=== PATIENT | female | born 1980 | race Caucasian/White ===

== ENCOUNTER 2018-02-04 12:15 | Emergency (ER) | payer BC ==
[2018-02-04] MEDS ORDERED: 0.9 % SODIUM CHLORIDE 1000ML 1,000 ML IV PRN (12:40)
[2018-02-04] MEDS ORDERED: KETOROLAC 30 MG/ML VIAL IVP ONE (12:40)
[2018-02-04] MEDS ORDERED: ONDANSETRON HCL IV 4 MG/2 ML VIAL IV ONE (12:40)
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
[2018-02-04 12:52] LABS: BASO % 0.2 % (0-6); EOS % 2.3 % (0-6); GRAN % 63.8 % (47-80); HEMATOCRIT 37.3 % (35.0-47.0); HEMOGLOBIN 10.9 gm/dl (11.6-16.0); LYMPH % 25.1 % (16-45); MEAN CELL VOLUME 72.6 fl (81-97); MEAN CORPUSCULAR HEMOGLOBIN 21.2 pg (27-33); MEAN CORPUSCULAR HGB CONC 29.2 g/dl (32-36); MEAN PLATELET VOLUME 9.5 fl (7.4-10.4); MONO % 8.6 % (0-9); PLATELET COUNT 419 K/uL (130-400); RED BLOOD COUNT 5.14 M/uL (3.80-5.40); RED CELL DISTRIBUTION WIDTH 16.5 % (11.5-14.5); WHITE BLOOD COUNT W/O DIFF 11.2 K/uL (4.2-12.2)
[2018-02-04 12:53] LABS: URINE APPEARANCE CLEAR; URINE BILIRUBIN NEGATIVE (NEGATIVE); URINE BLOOD NEGATIVE (NEGATIVE); URINE COLOR YELLOW; URINE GLUCOSE (UA) NEGATIVE (NEGATIVE); URINE KETONE NEGATIVE (NEGATIVE); URINE LEUKOCYTE ESTERASE NEGATIVE (NEGATIVE); URINE NITRITE NEGATIVE (NEGATIVE); URINE PROTEIN NEGATIVE (NEGATIVE); URINE UROBILINOGEN 0.2 E.U./dL (0.20 - 1.00)
[2018-02-04 12:55] LABS: HCG,QUALITATIVE URINE NEGATIVE (NEGATIVE)
[2018-02-04 13:18] LABS: BLOOD UREA NITROGEN 10 mg/dL (6-20)
[2018-02-04 13:19] LABS: CREATININE 0.5 mg/dL (0.5-0.9); EST GLOMERULAR FILTRATION RATE > 60 mL/min; TOTAL PROTEIN 6.7 g/dL (6.6-8.7)
[2018-02-04 13:21] LABS: GLUCOSE,RANDOM 116 mg/dL (74-109)
[2018-02-04 13:24] LABS: ALBUMIN 4.3 g/dL (4.0-5.0); ALKALINE PHOSPHATASE 55 U/L (35-104); ALT/SGPT 17 U/L (<33); AST/SGOT 14 U/L (10.0-35.0); BILIRUBIN,DIRECT < 0.2 mg/dL (0-0.3); LIPASE 167 U/L (13-60)
[2018-02-04] MEDS ORDERED: HYDROMORPHONE HCL 2 MG/ML VIAL IVP ONE (15:04)
[2018-02-04] MEDS ORDERED: ONDANSETRON HCL IV 4 MG/2 ML VIAL IVP ONE (15:05)
[2018-02-04] MEDS ORDERED: HYDROCODONE/APAP 7.5/325MG TABLET PO ONE (17:29)
--- NOTE | 2018-02-06 07:55 | CT SCAN REPORT ---
EXAM: EMERGENCY CT OF THE ABDOMEN AND PELVIS WITHOUT CONTRAST HISTORY: RIGHT FLANK PAIN AND RIGHT UPPER QUADRANT PAIN. TECHNIQUE: Axial CT scan of the abdomen and pelvis was performed without oral or IV contrast. Comparison: None. FINDINGS: There appear to be multiple calcifications in the gallbladder consistent with cholelithiasis. No definite adjacent inflammatory type changes seen to suggest acute cholecystitis. No intrarenal calculi identified on either side. No hydronephrosis or hydroureter is seen. As such the ureters are somewhat difficult to follow in their nondilated state particularly within the pelvis, but no definite ureteral calculus seen on either side and no bladder calculus evident. The uterus is tilted towards the right. Small periumbilical anterior abdominal wall hernia containing adipose tissue, but no bowel. The appendix appears of normal caliber with no appendicitis evident. Sight hyperdensity in the appendix appears relatively diffuse and is probably just concentrated enteric content rather than actual appendicolith's. Evaluation of the bowel and viscera is quite limited without oral or IV contrast. Given this limitation, no definite hepatic, splenic, adrenal, pancreatic, or renal mass identified. There are probably a couple small accessory spleens adjacent to the superior aspect of the spleen both medially and laterally. Mild ground glass opacity in both lung bases may represent some atelectasis. No free intraperitoneal air or free intraperitoneal fluid identified. Bilateral spondylolysis of L5 and narrowing of the lumbosacral interspace, with mild spondylolisthesis of L5 on S1. Generalized bulging of the annulus at the lumbosacral level as well. IMPRESSION: 1. NO DEFINITE URINARY TRACT CALCULUS OR HYDRONEPHROSIS EVIDENT. 2. APPARENT CHOLELITHIASIS. NO DEFINITE ADDITIONAL FINDINGS OF ACUTE CHOLECYSTITIS ALTHOUGH CLINICAL CORRELATION TO MILD ACUTE CHOLECYSTITIS SUGGESTED. 3. NO APPENDICITIS EVIDENT. NO FREE AIR OR FREE FLUID EVIDENT. 4. SMALL PERIUMBILICAL ANTERIOR ABDOMINAL WALL HERNIA CONTAINING ADIPOSE TISSUE , BUT NO BOWEL. 5. PROMINENT DEGENERATIVE CHANGE AT THE LUMBOSACRAL INTERSPACE WELL BILATERAL SPONDYLOLYSIS. MILD SPONDYLOLISTHESIS OF L5 ON S1. JOB NUMBER: [id number] [facility]
--- NOTE | 2018-02-06 08:01 | ULTRASOUND REPORT ---
EXAM: ULTRASOUND OF THE ABDOMEN HISTORY: PAIN. TECHNIQUE: Complete transabdominal ultrasound of the abdomen was obtained. Comparison: CT from today's date. FINDINGS: The liver is homogeneous in echotexture without focal lesion. Nonmobile shadowing stones fill the gallbladder lumen. The patient had pain with palpitation over the right upper quadrant. The gallbladder wall is thickening at 7 mm. No pericholecystic fluid. The CBD measures 3 mm. The pancreas is not well seen due to bowel gas. The spleen is unremarkable at 12 cm. The right kidney measures 12 x 5 cm and the left kidney measures 11 x 6 cm. No renal calculus, mass, or hydronephrosis. The abdominal aorta and inferior vena cava are not well seen due to bowel gas. There is no free fluid. IMPRESSION: CHOLELITHIASIS. THE PATIENT HAD PAIN WITH PALPATION OVER THE RIGHT UPPER QUADRANT. NONMOBILE STONES ARE PRESENT IN THE GALLBLADDER LUMEN. CORRELATE FOR THE POSSIBILITY OF CHOLECYSTITIS. THE CBD IS NOT DILATED. JOB NUMBER: [id number] [facility]
== END 2018-02-04 17:58 | disposition home or self-care (01) ==
LOC: ER 12:15
DX: K80.80 Other cholelithiasis without obstruction (principal); R11.0 Nausea; R10.11 Right upper quadrant pain; F17.210 Nicotine dependence, cigarettes, uncomplicated
CPT/HCPCS: 74176; 76700; 80048; 80076; 81003; 81025; 83690; 85025; 96374; 96375; 96376; 99284; J1885; J2405

== ENCOUNTER 2018-02-09 08:16 | Day surgery (SDC) | payer BC ==
[2018-02-09] MEDS ORDERED: FENTANYL PF 100MCG/2ML VIAL IV ONE (08:17)
[2018-02-09] MEDS ORDERED: ONDANSETRON HCL IV 4 MG/2 ML VIAL IVP ONE (08:17)
[2018-02-09] MEDS ORDERED: SEVOFLURANE 250 ML INH ONE (08:17)
[2018-02-09] MEDS ORDERED: PROPOFOL 10 MG/ML VIAL IV ONE (08:17)
[2018-02-09] MEDS ORDERED: BUPIVACAINE 0.25% W/EPI MPF 30ML VIAL IVP ONE (08:17)
[2018-02-09] MEDS ORDERED: METOCLOPRAMIDE HCL 10 MG/2 ML VIAL IVP ONE (08:17)
[2018-02-09] MEDS ORDERED: ROCURONIUM BROMIDE 50MG/5ML VIAL IV ONE (08:17)
[2018-02-09] MEDS ORDERED: KETOROLAC 30 MG/ML VIAL IVP ONE (08:17)
[2018-02-09] MEDS ORDERED: ACETAMINOPHEN 1,000 MG/100 ML BTL IV ONE (08:17)
[2018-02-09] MEDS ORDERED: MORPHINE SULFATE 4MG/ML PREFILLED SYRINGE IVP ONE (08:17)
[2018-02-09] MEDS ORDERED: GLYCOPYRROLATE 0.2 MG/ML ML IV ONE (08:17)
[2018-02-09] MEDS ORDERED: PROMETHAZINE HCL 25 MG/ML VIAL IVP ONE (08:17)
[2018-02-09] MEDS ORDERED: LIDOCAINE 2% MDV (20MG/ML) 20ML VIAL IV ONE (08:17)
[2018-02-09] MEDS ORDERED: MIDAZOLAM HCL 2MG/2ML VIAL IV ONE (08:17)
[2018-02-09] MEDS ORDERED: SUCCINYLCHOLINE 20 MG/ML 10ML IVP ONE (08:17)
[2018-02-09] MEDS ORDERED: NEOSTIGMINE 1 MG/1 ML,10ML VIAL IV ONE (08:17)
--- NOTE | 2018-02-10 13:20 | Operative Note ---
DATE OF SURGERY: 02/09/2018 Surgeon: aJyy Zhang DO PREOPERATIVE DIAGNOSIS: Cholelithiasis, chronic cholecystitis. POSTOPERATIVE DIAGNOSIS: Acute on chronic cholecystitis. OPERATION: Laparoscopic cholecystectomy. Indication: The patient is a 37-year-old female who is having ongoing right subcostal postprandial pain. She was seen both in the ER as well as outpatient visit multiple times for abdominal pain. Imaging studies did reveal cholelithiasis with a questionable thickened gallbladder wall. I saw Zahida this morning in the clinic. She was having ongoing discomfort. She was unable to eat and had consistent nausea and vomiting. We did discuss cholecystectomy versus medical management. Risks include but are not limited to bleeding, infection, ductal injury, possible conversion to open, postoperative bile leak. She understood this fully. PROCEDURE: Thereafter, consent was signed and questions answered. She was taken to the operating room and placed in a supine position. General anesthesia was administered per the department of anesthesia. The patient's abdomen was prepped and draped in the usual sterile fashion. The periumbilical region was anesthetized with a total of 5 mL of 0.25% Sensorcaine with epinephrine. A 2 cm supraumbilical incision was made. This was carried down to the anterior rectus fascia. This was incised. Romero clamps were placed on the fascial edges and brought up into the wound. Stay sutures of 0 Vicryl were placed. Posterior rectus sheath was identified and incised. The peritoneal cavity was entered bluntly. At this time, a 10 mm blunt Bess port was placed. Adequate pneumoperitoneum was established. Under direct visualization, additional 5 mm epigastric and two 5 mm right subcostal ports were placed. The patient was rotated into reverse Trendelenburg, rotation to left. The gallbladder was identified. This was retracted in a cephalad and lateral direction. It was noted to be very thickened, difficult to grasp. Therefore, I did have to switch to traumatic graspers. The hepatocystic triangle was thoroughly dissected out. The distal half of the gallbladder was released from the cystic plate elongating our retroductal window. The cystic duct and cystic artery were skeletonized along with two structures in the triangle of Calot. Each one was doubly clipped and cut in a standard fashion. Gallbladder was then taken off the liver bed with the Rolando harmonic. This was placed in an EndoCatch bag and brought out through the umbilical port. Right upper quadrant was rechecked and found to be hemostatic. No bleeding. No bile leak. No bowel injury noted. The patient was leveled out. The pneumoperitoneum was released. All ports were removed. The fascia was closed with 0 Vicryl in a [id number] fashion. The skin at all 4 ports was closed with 4-0 Vicryl. The patient was taken to the recovery room in satisfactory condition. FINDINGS AT THE TIME OF SURGERY: Acute on chronic cholecystitis. CC: MD ANASTACIA Douglas
--- NOTE | 2018-02-10 14:06 | History and Physical Report ---
I saw Ms. Ling in the office on 02/09/2018 in regard to her chronic abdominal pain. She states this has been going on for quite some time. She describes this as being in her epigastric and right subcostal region mainly after eating. She has been in the ER multiple occasions including last night. Imaging studies did reveal cholelithiasis without evidence of acute cholecystitis. Her lipase was mildly elevated last time. She was in on the 16. She had a normal white count. PAST MEDICAL HISTORY: Depression, anxiety, chronic abdominal pain. PAST SURGICAL HISTORY: Tonsillectomy, . CURRENT MEDICATIONS: 1. Motrin. 2. Percocet. 3. Xanax. ALLERGIES: She has no known medical allergies. SOCIAL HISTORY: She does smoke cigarettes. Denies any alcohol usage. PHYSICAL EXAMINATION: VITAL SIGNS: Height 5 feet 10 inches, weight 217. She is afebrile. Vital signs are stable. HEART: Regular. LUNGS: Clear. ABDOMEN: Soft. Mildly obese. There is tenderness on palpation. RADIOGRAPHIC DATA: I did review her imaging studies. IMPRESSION: Cholelithiasis with chronic cholecystitis. PLAN: We did discuss surgical intervention versus medical management. She desires surgical intervention. Risks include but are not limited to bleeding, infection, nonresolution of her symptoms, bile duct injury, bile leak. She understands this fully. This will be scheduled shortly. Thank you for this referral. ANASTACIA
== END 2018-02-09 12:20 | disposition home or self-care (01) ==
LOC: SUR 08:16
PROVIDERS: ATTEND Surgery
DX: K80.12 Calculus of gallbladder with acute and chronic cholecystitis without obstruction (principal); F17.210 Nicotine dependence, cigarettes, uncomplicated
CPT/HCPCS: J0330; J1885; J2274; J2405; J2550; J2710; J2765

== ENCOUNTER 2018-08-24 16:13 | Emergency (ER) | payer BC ==
[2018-08-24] MEDS ORDERED: KETOROLAC 30 MG/ML VIAL IM ONE (16:26)
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
[2018-08-24] MEDS ORDERED: HYDROCODONE/APAP 5/325MG TABLET PO ONE (17:10)
== END 2018-08-24 17:48 | disposition home or self-care (01) ==
LOC: ER 16:13
DX: M54.5 Low back pain (principal); M25.552 Pain in left hip; M79.662 Pain in left lower leg; F17.210 Nicotine dependence, cigarettes, uncomplicated
CPT/HCPCS: 99283 ×2; 96372; J1885